=== PATIENT | male | born 1955 | race Caucasian/White ===

== ENCOUNTER → 2019-11-16 09:54 | Outpatient (POV) | payer MEDICARE, MEDICAID, SELFPAY ==
[2019-11-16 10:42] VITALS: BP 145/91; PULSE 103; RESP 18; TEMP 36.8; O2SAT 98; BMI 32.4
--- NOTE | 2019-11-16 11:10 | HMH.PMCON ---
Assessment and Plan (1) Degenerative joint disease (DJD) of lumbar spine Current visit: Yes Status: Acute Category: Medical Code(s): M47.816 - Spondylosis without myelopathy or radiculopathy, lumbar region (2) Lumbar radiculopathy Current visit: Yes Status: Acute Category: Medical Code(s): M54.16 - Radiculopathy, lumbar region (3) Degenerative joint disease of cervical spine Current visit: Yes Status: Chronic Category: Medical Code(s): M47.812 - Spondylosis without myelopathy or radiculopathy, cervical region (4) Cervical radiculopathy Current visit: Yes Status: Chronic Category: Medical Code(s): M54.12 - Radiculopathy, cervical region - Assessment and plan all Dx Assessment and Plan for all problems:: We will schedule the patient for a lumbar epidural steroid injection at L4-L5. Most of his pain is in his low back. He does have some neck pain as well as arm pain, however, he says much of his pain is in his low back and bilateral lower extremities. We will see him back in the clinic after his injection to reassess his symptoms. Patient does have recent imaging. He was referred to us for possible spinal cord stimulation or intrathecal therapy. We will begin the process of sending the patient for a psychological evaluation, however, the patient may get full relief with the injections. We will follow-up with him at his next visit to discuss a further plan of care after his injection. He has been instructed to contact the clinic if he has any concerns before his next appointment. The patient and I specifically discussed risk factors for COVID19. These risks include, but are not limited to age greater than 60, heart or lung disease, diabetes, immunosuppression, and travel. We also discussed NSAIDs may worsen COVID19 infection or symptoms. Patient should not use NSAIDs to treat COVID19 signs or symptoms. Patient was also informed that any type of corticosteroid of any form (oral or injection) will decrease the patient's immune system response and may increase the likelihood of COVID19 infection [address] symptoms[address] Mendez has reviewed this note and agrees with this plan of care. This note was dictated using voice recognition software and make contain errors or omissions. HPI - Data of Consult Patient: new to practice Consult date: 11/16/19 Requesting Physician: Adelaide Baeza APRN Primary Care Provider: Deidre Paniagua APRN - Consult Narrative Reason for consult: Neck pain, back pain, leg pain History of present illness: Mr. Casey is a 64 year old male presents today for consultation for low back pain as well as neck pain with radiation into his bilateral upper and lower extremities. Patient was being seen in a pain management center in [facility]. He was complaining of worsening pain and was referred to a neurosurgeon in [facility]. Patient says that he was receiving injections in his back, however, he says he was not getting any relief. The neurosurgeon did determine the patient to not be an appropriate candidate for surgical intervention and as a result did refer him to our clinic. Patient was referred for possible spinal cord stimulation or intrathecal therapy. The patient says that his sister is a patient within the clinic [facility]. He says that he has heard great things about Dr. Mendez and would like to proceed with treatment in our clinic. Patient rates his pain a 7 out of 10. He says that his pain is worse with standing and walking. He has had the pain since 1986 from a work injury. Patient says the pain has just progressively worsened over the years. He says that none of the injections have given him long-term relief. He does get approximately 60 to 70% relief with the injections, however, only temporary. Patient does say he is scheduled to undergo an echocardiogram/stress test on November 24. He would like to postpone any type of treatment before his stress test. Patient
== END ==
PROVIDERS: PCP Nurse Practitioner Family; Visit Provider Clinical Nurse Specialist Family Health
DX: M47.896 Other spondylosis, lumbar region (principal); M54.16 Radiculopathy, lumbar region; M47.892 Other spondylosis, cervical region; M54.12 Radiculopathy, cervical region
CPT/HCPCS: 99202

== ENCOUNTER 2019-12-04 12:54 | Day surgery (SDC) | payer MEDICARE, MEDICAID, SELFPAY ==
[2019-12-04 13:15] VITALS: BP 115/77; PULSE 64; RESP 18; TEMP 36.6; O2SAT 97; BMI 32.4
[2019-12-04 14:01] VITALS: BP 102/79; PULSE 69; RESP 18; O2SAT 98
[2019-12-04 14:02] VITALS: BP 132/88; PULSE 85; RESP 18; O2SAT 98
--- NOTE | 2019-12-04 14:06 | HMH.PMPROC ---
- Procedure Date: 12/04/19 Time: 14:06 Anesthesiologist:: Thierry Mendez MD Complications:: None Pre-procedure Diagnosis:: Degenerative disc disease of lumbar spine with lumbar radiculopathy symptoms and postlaminectomy syndrome of lumbar spine Post-procedure Diagnosis:: Same Indications for Procedure:: The patient is a pleasant 64-year-old white male who we are treating for low back pain with lumbar radiculopathy symptoms and postlaminectomy syndrome lumbar spine. He has had previous surgery on his cervical spine and lumbar spine. He does have some increasing pain in his low back. He does have some radicular symptoms. We will do lumbar epidural steroid injection today to see if this will help with his pain symptoms. Procedure Details:: Lumbar epidural steroid injection under fluoroscopy Informed consent was obtained and the risk and benefits of the procedure was explained to the patient. The patient was taken to the procedure room. The patient was placed prone on the procedure table. The patient was prepped and draped in sterile fashion. C-arm fluoroscopy was used to view the lumbar spine. Skin and subcutaneous tissues were anesthetized using lidocaine. I placed an 18-gauge epidural needle and advanced into the L4-L5 interspace using fluoroscopic guidance and [id number] to air. After confirmation of needle placement in the epidural space with dye I injected 2 mL of lidocaine 1.5% with Depo-Medrol 80 mg. Patient tolerated the procedure well with no complications. Plan and Disposition:: We will follow-up with him in 2 weeks. Will reevaluate his symptoms at that time. If he does not benefit from this lumbar pleural steroid injection he may benefit from facet joint injections to L4-5 and L5-S1 bilaterally.
[2019-12-04 14:20] VITALS: BP 119/69; PULSE 58; RESP 18; O2SAT 97
== END 2019-12-04 14:20 | disposition home or self-care (01) ==
LOC: SC.PAINP 12:59
PROVIDERS: PCP Nurse Practitioner Family; Visit Provider Anesthesiology
DX: M51.16 Intervertebral disc disorders with radiculopathy, lumbar region (principal); M96.1 Postlaminectomy syndrome, not elsewhere classified; E11.9 Type 2 diabetes mellitus without complications; I10 Essential (primary) hypertension; Z72.0 Tobacco use; I25.2 Old myocardial infarction; J44.9 Chronic obstructive pulmonary disease, unspecified; Z87.39 Personal history of other diseases of the musculoskeletal system and connective tissue; Z79.51 Long term (current) use of inhaled steroids; Z79.899 Other long term (current) drug therapy
CPT/HCPCS: 62323; J1040; Q9966

== ENCOUNTER → 2019-12-24 09:59 | Outpatient (POV) | payer MEDICARE, MEDICAID, SELFPAY ==
[2019-12-24 10:06] VITALS: BP 132/77; PULSE 74; RESP 18; TEMP 36.8; O2SAT 98; BMI 31.9
--- NOTE | 2019-12-24 12:49 | HMH.PAINSOAP ---
[facility] Pain Management SOAP Note Subjective:: Patient is a pleasant 64-year-old white male who presents today for up after a lumbar epidural steroid injection at L4-L5. He is being treated for low back pain with lumbar radiculopathy symptoms and postlaminectomy syndrome lumbar spine. Patient says that he only got a day of relief up to 40%. He says that his pain immediately returned. Patient reports his pain to be in the low back and worse with bending forward and at the waist. He rates his pain 8 out of 10 today. Does have facet arthritis noted on his imaging. Review of Systems General: No recent weight changes, no fever, no sleep disturbances Respiratory: No cough, no shortness of air, no recurring pulmonary infections Cardiovascular/peripheral vascular: No chest pain, no palpitations, no edema, no shortness of breath Gastrointestinal: No new onset incontinence, normal bowel movements reported Genitourinary: No new onset incontinence Musculoskeletal: Low back pain Psychiatric: Normal mood/affect Neurological: [Denies weakness in extremities], [denies balance issues] Objective:: Physical exam General: Alert and oriented x3, no acute distress, pleasant and cooperative, [on room air] Lungs: Respirations even and unlabored, symmetrical chest expansion Eyes: PERRL Musculoskeletal: Flexion and extension of bar spine somewhat guarded secondary to pain, deep tendon reflexes normal, strength in upper and lower extremities [5/5], [abnormal gait noted], positive Kemps test Neurological: Speech clear, global sales director equal, no gross sensory deficit Assessment:: Degenerative disc disease lumbar spine with lumbar radiculopathy symptoms, facet arthropathy Plan:: The patient for bilateral facet injections/medial branch blocks at L4-L5 L5-S1. He is not on any anticoagulation therapy. We will plan to see him back after his injection to reassess his symptoms. He did not get relief with the epidural steroid injection. He did discuss possible facet/medial branch block injections with Dr. KYLAH Willis at his last visit. He has been instructed to contact the clinic if he has any concerns for his next appointment. The patient and I specifically discussed risk factors for COVID19. These risks include, but are not limited to age greater than 60, heart or lung disease, diabetes, immunosuppression, and travel. We also discussed NSAIDs may worsen COVID19 infection or symptoms. Patient should not use NSAIDs to treat COVID19 signs or symptoms. Patient was also informed that any type of corticosteroid of any form (oral or injection) will decrease the patient's immune system response and may increase the likelihood of COVID19 infection [address] symptoms[address] Mendez has reviewed this note and agrees with this plan of care. This note was dictated using voice recognition software and make contain errors or omissions. [facility] History I have reviewed the patient's past medical history: Yes Medical History: Reports:: Diabetes Mellitus Type 2, Myocardial Infarction Denies:: Cancer, MRSA, Seizures *Have you ever received a pneumonia vaccine?: No *Have you received a flu vaccine this season?: No Other Medical History: Reports: Arthritis, Thyroid Disease Other Surgeries: Yes: Cardiac Catheterization Amputation: No - *Social History Smoking Status: Current every day smoker Tobacco Type: cigarettes # Packs/Day (cigarettes): 2 Alcohol Intake: former *Occupational Status:: other Housing: house Household Members: other *Travel in the last 8 weeks: None Family Hx:: Unable to obtain
== END ==
PROVIDERS: PCP Nurse Practitioner Family; Visit Provider Clinical Nurse Specialist Family Health
DX: M51.16 Intervertebral disc disorders with radiculopathy, lumbar region (principal); M12.88 Other specific arthropathies, not elsewhere classified, other specified site
CPT/HCPCS: 99212

== ENCOUNTER → 2020-01-15 12:58 | Day surgery (SDC) | payer MEDICARE, MEDICAID, SELFPAY ==
[2020-01-15 13:42] VITALS: BP 110/66; PULSE 82; RESP 18; TEMP 36.7; O2SAT 96; BMI 31.9
[2020-01-15 14:06] VITALS: BP 137/79; PULSE 85; RESP 18; O2SAT 98
[2020-01-15 14:07] VITALS: BP 139/78; PULSE 84; RESP 18; O2SAT 99
--- NOTE | 2020-01-15 14:13 | HMH.PMPROC ---
- Procedure Date: 01/15/20 Time: 14:13 Anesthesiologist:: Thierry Mendez MD Complications:: None Pre-procedure Diagnosis:: Degenerative disc disease of lumbar spine with lumbar spondylosis and facet arthropathy of lumbar spine Post-procedure Diagnosis:: Same Indications for Procedure:: This patient is a pleasant 64-year-old white male who we are treating for low back pain with lumbar spondylosis and facet arthropathy of lumbar spine. He has had previous surgery with fusion of L4-L5. He has had a lumbar pleural steroid injection. He did not get much relief from this. He presents for medial branch blocks of L5 and sacral ala today bilaterally. Procedure Details:: Lumbar medial branch block Informed consent was obtained and the risks and benefits of the procedure was explained to the patient. The back was prepped using ChloraPrep. The skin and subcutaneous tissues were anesthetized using lidocaine. I placed 22-gauge spinal needles into the facet joint/medial branches of L4-L5 and L5-S1 bilaterally. Needle placement was confirmed with dye. After this we injected 3 mL bupivacaine 0.25% and Depo-Medrol 20 mg into each facet joint/medial branch of L4-L5 and L5-S1 bilaterally. We used a total of 80 mg Depo-Medrol for both levels bilaterally. The patient tolerated the procedure well with no complications. Plan and Disposition:: We will follow-up with him in 2 weeks. Will reevaluate symptoms at that time. If he does not get much relief he may be a candidate for intrathecal therapy given his previous back surgery.
== END ==
PROVIDERS: PCP Nurse Practitioner Family; Visit Provider Anesthesiology
DX: M51.36 Other intervertebral disc degeneration, lumbar region (principal); M47.816 Spondylosis without myelopathy or radiculopathy, lumbar region; M12.88 Other specific arthropathies, not elsewhere classified, other specified site; E11.9 Type 2 diabetes mellitus without complications; I10 Essential (primary) hypertension; N40.0 Benign prostatic hyperplasia without lower urinary tract symptoms; Z72.0 Tobacco use; E78.5 Hyperlipidemia, unspecified; J44.9 Chronic obstructive pulmonary disease, unspecified; E07.9 Disorder of thyroid, unspecified; Z82.49 Family history of ischemic heart disease and other diseases of the circulatory system
CPT/HCPCS: 64493; 64494; J1030; Q9966

== ENCOUNTER → 2020-02-04 09:22 | Outpatient (POV) | payer MEDICARE, MEDICAID, SELFPAY ==
[2020-02-04 10:02] VITALS: BP 132/74; PULSE 79; RESP 18; O2SAT 98; BMI 30.7
--- NOTE | 2020-02-04 10:14 | HMH.PAINSOAP ---
[facility] Pain Management SOAP Note Subjective:: Patient is a 65-year-old white male who presents today for follow-up after medial branch block/facet joint injections. Patient did not get any relief. He rates his pain an 8 out of 10 today. He says that he is continuing to have significant pain to his low back. He has had previous surgery with fusion of L4-L5. He is also had lumbar epidural steroid injections with no relief. He has tried physical therapy for greater than 6 weeks. He has also tried a continued home stretching program. Patient does continue to use ice and heat therapies and has tried anti-inflammatories in the past with no relief. At this point he has exhausted all conservative measures He continues to has significant low back pain and leg pain. Review of Systems General: No recent weight changes, no fever, no sleep disturbances Respiratory: No cough, no shortness of air, no recurring pulmonary infections Cardiovascular/peripheral vascular: No chest pain, no palpitations, no edema, no shortness of breath Gastrointestinal: No new onset incontinence, normal bowel movements reported Genitourinary: No new onset incontinence Musculoskeletal: Low back pain, bilateral lower extremity pain Psychiatric: Normal mood/affect Neurological: [Denies weakness in extremities], [denies balance issues] Objective:: Physical exam General: Alert and oriented x3, no acute distress, pleasant and cooperative, [on room air] Lungs: Respirations even and unlabored, symmetrical chest expansion Eyes: PERRL Musculoskeletal: Flexion and extension of lumbar spine somewhat guarded secondary to pain, deep tendon reflexes normal, strength in upper and lower extremities [5/5], [abnormal gait noted] Neurological: Speech clear, desktop support engineer equal, no gross sensory deficit Assessment:: Degenerative disc disease lumbar spine with lumbar radiculopathy symptoms, lumbar spondylosis and facet arthropathy lumbar spine Plan:: Patient is trying failed all conservative measures. We will schedule him for a pain pump trial. The patient is not on any anticoagulation therapy. Patient has not been able to tolerate morphine in the past. He says that he has severe nausea and vomiting anytime he does take morphine. We will see him back in the clinic after his injection to reassess his symptoms. He has been instructed to contact clinic if he has any concerns for his next appointment. The patient and I specifically discussed risk factors for COVID19. These risks include, but are not limited to age greater than 60, heart or lung disease, diabetes, immunosuppression, and travel. We also discussed NSAIDs may worsen COVID19 infection or symptoms. Patient should not use NSAIDs to treat COVID19 signs or symptoms. Patient was also informed that any type of corticosteroid of any form (oral or injection) will decrease the patient's immune system response and may increase the likelihood of COVID19 [address] symptoms[address] Mendez has reviewed this note and agrees with this plan of care. This note was dictated using voice recognition software and make contain errors or omissions. [facility] History I have reviewed the patient's past medical history: Yes Medical History: Reports:: Diabetes Mellitus Type 2, Hyperlipidemia, Hypertension, Myocardial Infarction Denies:: Cancer, Diabetes Mellitus Type 1, MRSA, Seizures *Have you ever received a pneumonia vaccine?: Yes *Have you received a flu vaccine this season?: Yes Other Medical History: Reports: Arthritis, Thyroid Disease Other Surgeries: Yes: Cardiac Catheterization Amputation: No Fractures: No - *Social History Smoking Status: Current every day smoker Tobacco Type: cigarettes # Packs/Day (cigarettes): 1 Alcohol Intake: never *Occupational Status:: other Housing: house Household Members: other *Travel in the last 8 weeks: None Family Hx:: Unable to obtain
== END ==
PROVIDERS: PCP Nurse Practitioner Family; Visit Provider Clinical Nurse Specialist Family Health
DX: M51.16 Intervertebral disc disorders with radiculopathy, lumbar region (principal); M47.896 Other spondylosis, lumbar region; M12.88 Other specific arthropathies, not elsewhere classified, other specified site
CPT/HCPCS: 99212

== ENCOUNTER 2020-02-26 08:22 | Day surgery (SDC) | payer MEDICARE, MEDICAID, SELFPAY ==
[2020-02-26] VITALS (10 sets, daily range): BP systolic 106–139; BP diastolic 70–88; PULSE 91–105; RESP 18–20; TEMP 36.4; O2SAT 95–99; BMI 30.7
--- NOTE | 2020-02-26 09:26 | HMH.PMPROC ---
- Procedure Date: 02/26/20 Time: 09:26 Anesthesiologist:: Thierry Mendez MD Complications:: None Pre-procedure Diagnosis:: Degenerative disc disease of lumbar spine with lumbar radiculopathy symptoms and postlaminectomy syndrome lumbar spine with previous fusion of L4-L5 Post-procedure Diagnosis:: Same Indications for Procedure:: This patient is a pleasant 65-year-old white male who we are treating for low back pain with lumbar radiculopathy symptoms and postlaminectomy syndrome lumbar spine. Patient has had a previous fusion of L4-L5. Patient has failed all previous conservative therapy including medial branch blocks, and other injections, oral medications and physical therapy. He is also failed previous surgery. He has had a successful psychological evaluation. He presents for intrathecal pump trial today. Patient does get deathly ill with morphine. If this is successful we will plan on using intrathecal Dilaudid. Today we will do an intrathecal pump trial with single shot of intrathecal fentanyl. Procedure Details:: Pain pump trial Informed consent was obtained and the risk and benefits of the procedure was explained to the patient. The patient was taken to the procedure room and placed prone on the procedure table. Patient was prepped and draped in sterile fashion. C-arm fluoroscopy was used to view the lumbar spine. The skin and subcutaneous tissues were anesthetized using lidocaine. I placed a 18-gauge spinal needle into the L4-5 interspace and advanced until clear CSF was obtained. After this intrathecal catheter was inserted and advanced very easily to the L1 vertebral body. The needle was withdrawn. We were able to freely withdraw clear CSF through the catheter. We then injected intrathecal fentanyl single shot bolus of 25 mcg followed by saline and followed by the previous CSF that was withdrawn. The needle and catheter were then removed and a Band-Aid was placed. Patient tolerated the procedure well with no complications. We reevaluated the patient after 30 minutes to 1 hour. He was also reassessed by physical therapy. Patient had 90 to 100% relief in his pain symptoms. He was also much more functional. This was a successful intrathecal pump trial. We will plan on permanent placement of intrathecal pain pump with catheter tip at the L1 vertebral body. We will plan on using intrathecal Dilaudid 1 mg/mL as the patient does have a severe allergy to pain. We will plan on starting at 0.1 mg/day of intrathecal Dilaudid. Plan and Disposition:: We will have this patient see Dr. Darling for permanent placement of intrathecal pain pump. We will plan on permanent placement of intrathecal pain pump with catheter tip at the L1 vertebral body. We will also plan on using intrathecal Dilaudid 1 mg/mL to start at 0.1 mg/day.
--- NOTE | 2020-02-26 11:04 | PC.NURSE ---
0930-pt returned to bay, ambulatory, accompanied by nursing staff. assisted to reclining chiar. VSS. rates pain 4 on scale of 1-10. pt provided with water per request. no other needs or concerns at this time. 0945-pt resting in chair. tolerating PO intake. VSS. no c/o pain 0947-pt sitting up in chair. eating breakfast. c/o itching. medicated per prn order. no other needs or concerns at this time. 1000-pt resting in chair. vss, no c/o pain. assisted to bathroom by nursing staff. gait steady. 1015-pt resting in chair. vss, no c/o pain. no needs or concerns at this time 1045-pt resting in chair. vss, no c/o pain. verbalized wanting to go home MD notified 1050-MD at bedside.
== END 2020-02-26 11:00 | disposition home or self-care (01) ==
LOC: SC.PAINP 08:25
PROVIDERS: PCP Nurse Practitioner Family; Visit Provider Anesthesiology
DX: M51.16 Intervertebral disc disorders with radiculopathy, lumbar region (principal); M96.1 Postlaminectomy syndrome, not elsewhere classified; M43.26 Fusion of spine, lumbar region; I10 Essential (primary) hypertension; N40.0 Benign prostatic hyperplasia without lower urinary tract symptoms; F32.9 Major depressive disorder, single episode, unspecified; G25.81 Restless legs syndrome; E11.9 Type 2 diabetes mellitus without complications; Z79.84 Long term (current) use of oral hypoglycemic drugs; Z79.899 Other long term (current) drug therapy
CPT/HCPCS: 62323; 96365

== ENCOUNTER → 2020-04-05 11:51 | Outpatient (CLI) | payer MEDICARE, MEDICAID, SELFPAY ==
[2020-04-05 12:33] LABS: Basophils # 0.1 K/mm3 (0-0.2); Basophils % 0.6 % (0.1-2.0); Eosinophils # 0.2 K/mm3 (0.0-0.4); Eosinophils % 2.2 % (0.1-12.0); Hematocrit 45.7 % (42.0-52.0); Hemoglobin 15.7 g/dL (14.1-18.0); Lymphocytes # 2.9 K/mm3 (0.7-4.5); Lymphocytes % 30.4 % (10-50); Mean Corpuscular HGB Conc 34.4 g/dL (31.8-35.4); Mean Corpuscular Hemoglobin 32.1 pg (27.0-31.2); Mean Corpuscular Volume 93.4 fl (80-94); Mean Platelet Volume 8.1 fl (7.4-10.4); Monocytes # 0.5 K/mm3 (0.1-1.0); Monocytes % 4.6 % (1.7-9.3); Neutrophils % 62.2 % (37.0-80.0); Platelet Count 252 K/mm3 (142-424); Red Cell Distribution Width 14.6 % (11.5-17.5); White Blood Count 9.6 K/mm3 (4.8-10.8)
[2020-04-05 12:38] LABS: Benzodiazepines Screen,Urine Negative ng/ml (<200)
[2020-04-05 12:39] LABS: Amphetamine/Metha Screen,Urine Negative ng/ml (<1000)
[2020-04-05 12:40] LABS: Barbiturates Screen,Urine Negative ng/ml (<200); Cannabinoid Screen,Urine Negative ng/ml (<50)
[2020-04-05 12:41] LABS: Cocaine Screen,Urine Negative ng/ml (<300); Methadone Screen,Urine Negative ng/ml (<300)
[2020-04-05 12:42] LABS: Opiate Screen,Urine Negative ng/ml (<300)
[2020-04-05 12:51] LABS: Phencyclidine Screen,Urine Negative ng/ml (<25)
[2020-04-05 12:55] LABS: Chloride 102 mmol/L (98-107); Potassium 4.3 mmoL/L (3.5-5.1); Sodium 138 mmol/L (136-145)
[2020-04-05 12:58] LABS: Anion Gap 14.3 mEq/L (5-15); Blood Urea Nitrogen 14 mg/dl (9-20); Calcium 10.2 mg/dl (8.4-10.2); Carbon Dioxide 26 mmol/L (22.0-30.0); Estimated Glomerular Filt Rate 75 ml/min (>60); GFR (African American) 90 ML/MIN (>60); Glucose 145 mg/dl (74-100)
[2020-04-05 13:47] LABS: Coronavirus 19 IgG Antibody Negative (Negative)
[2020-04-05 13:48] LABS: Coronavirus 19 IgM Antibody Negative (Negative)
== END ==
PROVIDERS: Visit Provider Anesthesiology
DX: Z01.818 Encounter for other preprocedural examination (principal); Z03.818 Encounter for observation for suspected exposure to other biological agents ruled out; M51.36 Other intervertebral disc degeneration, lumbar region
CPT/HCPCS: 36415; 80048; 80305; 85025; 86328

== ENCOUNTER 2020-04-06 06:19 | Day surgery (SDC) | payer MEDICARE, MEDICAID, SELFPAY ==
[2020-04-04 14:26] VITALS: BMI 32.4
[2020-04-06 07:08] VITALS: BP 130/83; PULSE 81; RESP 18; TEMP 36.2; O2SAT 97
--- NOTE | 2020-04-06 07:23 | SUR.PREOP ---
CYRIL DICK DIRECTOR ENGINEERING NOTIFIED OF FSBS 167, NO NEW ORDERS.
[2020-04-06 07:27] LABS: POC Glucose,Bedside 167 (70-110)
--- NOTE | 2020-04-06 07:31 | P.PN_ITS ---
[facility] Anesthesia Checklist - Structural Data Admitted From: Home Planned Operative Procedure/s: pain pump Consent for Planned Operative Procedure(s) Verified: Yes - Additional verifications Anesthesia Reactions: No Hx Blood Transfusions: No - Airway Assessment C-Spine Mobility Assessed: Yes TMJ Mobility Assessed: Yes Dentition: Edentulous - Neurological Assessment Level of Consciousness: Awake, Alert, Appropriate - Anesthesia Plan Anesthesia Risk discussed: Yes Anesthesia Plan: Verified ASA Class: III Anesthesia Type: MAC [facility] History I have reviewed the patient's past medical history: Yes Medical History: Reports:: Diabetes Mellitus Type 2, Hyperlipidemia, Hypertension, Myocardial Infarction Denies:: Cancer, Diabetes Mellitus Type 1, Internal Pacemaker, MRSA, Seizures *Have you ever received a pneumonia vaccine?: Yes *Have you received a flu vaccine this season?: Yes Other Medical History: Reports: Arthritis, Thyroid Disease Anesthesia experience/problems:: none Other Surgeries: Yes: Cardiac Catheterization, Colonoscopy, EGD, Hernia Repair, Other (x2 back surgeries). No: Pacemaker Amputation: Yes Fractures: No - *Social History Last grade of school completed: 9th or 10th Smoking Status: Current every day smoker Tobacco Type: cigarettes # Packs/Day (cigarettes): 1 Alcohol Intake: former Substance Use Type: denies use *Occupational Status:: unemployed, disabled Housing: house Household Members: none *Travel in the last 8 weeks: None Family Hx:: Unable to obtain
--- NOTE | 2020-04-06 07:51 | HMH.PMCON ---
Assessment and Plan - Assessment and plan all Dx Assessment and Plan for all problems:: Impression-degenerative disc disease of the lumbar spine with radiculopathy Plan-placement of intrathecal pain pump system today HPI - Data of Consult Patient: new to practice Consult date: 04/06/20 Requesting Physician: Thierry Mendez MD Primary Care Provider: Deidre Paniagua APRN - Consult Narrative History of present illness: Mr. Casey is a 65 year old male with chronic back pain. He has had back surgery x2. Multiple attempts at pain relief unsuccessful. Patient had a pain pump trial with success and comes in today for placement of that system. CC: Thierry Mendez MD Back pain [facility] History I have reviewed the patient's past medical history: Yes Medical History: Reports:: Diabetes Mellitus Type 2, Hyperlipidemia, Hypertension, Myocardial Infarction Denies:: Cancer, Diabetes Mellitus Type 1, Internal Pacemaker, MRSA, Seizures *Have you ever received a pneumonia vaccine?: Yes *Have you received a flu vaccine this season?: Yes Other Medical History: Reports: Arthritis, Thyroid Disease Comment:: Illnesses-cigarette usage, hypertension, hyperlipidemia, COPD, BPH, anxiety and depression, chronic back pain Anesthesia experience/problems:: none Other Surgeries: Yes: Cardiac Catheterization, Colonoscopy, EGD, Hernia Repair, Other (x2 back surgeries). No: Pacemaker Amputation: Yes Fractures: No Comment: Operations, back surgery x2, hernia repair - *Social History Last grade of school completed: 9th or 10th Smoking Status: Current every day smoker Tobacco Type: cigarettes # Packs/Day (cigarettes): 1 Alcohol Intake: former Substance Use Type: denies use *Occupational Status:: unemployed, disabled Housing: house Household Members: none *Travel in the last 8 weeks: None Family Hx:: Unable to obtain Review of Systems - Review of Systems Review of systems:: pertinent systems reviewed and negative unless documented below Meds Home Medications Medication Instructions Recorded Confirmed Type Amitriptyline HCl [Elavil 50mg 50 mg PO DAILYP PRN 11/16/19 04/06/20 History tablet] Finasteride 1 mg PO DAILY 11/16/19 04/06/20 History Metformin HCl [Fortamet] 500 mg PO DAILY 11/16/19 04/06/20 History Metoprolol Succinate [Metoprolol 25 mg PO DAILY 11/16/19 04/06/20 History Succinate 25mg Tablet*] allopurinoL [Allopurinol 300mg 300 mg PO DAILY 11/16/19 04/06/20 History tablet] Cyclobenzaprine HCl 10 mg PO TID 12/24/19 04/06/20 History [Cyclobenzaprine 10mg Tab] Loratadine 10 mg PO DAILY 12/24/19 04/06/20 History Naproxen 500 mg PO BID 12/24/19 04/06/20 History Pravastatin Sodium [Pravachol] 40 mg PO HS 12/24/19 04/06/20 History Ropinirole HCl [Ropinirole ER] 3 mg PO TID 12/24/19 04/06/20 History Sertraline HCl 25 mg PO DAILY 12/24/19 04/06/20 History Tamsulosin HCl 0.4 mg PO HS 12/24/19 04/06/20 History Verapamil HCl [Verapamil ER] 120 mg PO DAILY 12/24/19 04/06/20 History hydrOXYzine HCL [Hydroxyzine HCl] 50 mg PO HS 12/24/19 04/06/20 History Allergies Allergy/AdvReac Type Severity Reaction Status Date / Time No Known Allergies Allergy Verified 04/06/20 07:04 Objective Vital signs: Temp Pulse Resp BP Pulse Ox 97.1 F L 81 18 130/83 97 04/06/20 07:08 04/06/20 07:08 04/06/20 07:08 04/06/20 07:08 04/06/20 07:08 Comments: Pale white male in no distress - *Routine Respiratory Exam Comments: Decreased breath sounds - *Routine Cardiovascular Exam Present: RRR - *Routine Abdominal Exam Present: soft Comments: Diastases rectus
[2020-04-06 09:53] VITALS: TEMP 43; TEMP 6.1
--- NOTE | 2020-04-06 10:01 | P.OP_ITS ---
Date of procedure: 04/06/20 Pre-op Diagnosis:: Degenerative disc disease of the lumbar spine with radiculopathy Post-op Diagnosis:: Same Procedure performed:: Placement of pain pump generator Surgeon:: Sanju Darling MD LEAD BASED PAINT TECHNICIAN:: Ry Kellogg, Kali Mcnulty, Bradley Mcclain, Gabino Hanna, Other Anesthesia: MAC Estimated blood loss (mL): 5 Operative findings:: Not applicable Operative note:: Once adequate IV sedation was obtained via anesthesia the patient was placed prone on the operating table and his back and flank regions were prepped and draped in sterile fashion. Once adequate local anesthesia was 1% Xylocaine with epinephrine a paraspinal incision was made by Dr. Simons which an intrathecal catheter was passed into the intrathecal space to the area desired by Dr. Kay. Catheter then fixed the paraspinal fascia with fixation devices and 2-0 Prolene suture. Right flank incision was then made after local anesthesia obtained under which made a pocket for placement of the reservoir. Catheter was passed to the paraspinal incision of the pocket incision utilize a tunneling device. Both incisions irrigated with antibiotic solution. Catheter connected the generator placed in the pocket. CSF was aspirated from the generator noting patency of the system. Subcutaneous tissues closed with interrupted stitches of 2-0 Vicryl. Skin closed with stitches of 4-0 nylon. Wound VAC dressings and binder is applied to the wound. The patient taught procedure well taken recovery sedation. Upon recovery the patient will be discharged home follow-up in 1 week for removal of the wound VAC system in 2 weeks for removal of the sutures. Antibiotic x1 week per protocol. The patient taught procedure well. Condition: stable Disposition: PACU Complications:: None
--- NOTE | 2020-04-06 10:02 | P.OP_ITS ---
Date of procedure: 04/06/20 Pre-op Diagnosis:: Degenerative disc disease of lumbar spine with lumbar radiculopathy symptoms and postlaminectomy syndrome of lumbar spine with previous fusion at L4-L5 Post-op Diagnosis:: Same Procedure performed:: Intrathecal catheter placement with tunneling for permanent placement of intrathecal pain pump Surgeon:: Thierry Mendez MD AGRICULTURAL SALES REPRESENTATIVE:: Ry Kellogg Anesthesia: MAC Estimated blood loss (mL): 5 Clinical Note:: This patient is a pleasant 65-year-old white male who we are treating for low back pain with lumbar radiculopathy symptoms and postlaminectomy syndrome lumbar spine. He is failed all previous conservative therapy including medial branch blocks, other injections, oral medications and physical therapy. He is also failed previous surgery. He has had a successful psychological evaluation and a successful intrathecal pump trial. Patient gets deathly ill with morphine. He presents for permanent placement of intrathecal pain pump with Dilaudid today. Operative findings:: None Operative note:: Informed consent was obtained and the risk and benefits of the procedure was explained to the patient. Patient was taken to the operating room and placed prone on the procedure table. He was prepped and draped in sterile fashion. C- arm fluoroscopy was used to view the lumbar spine. The skin and subcutaneous tissues were anesthetized using lidocaine. I made an incision adjacent to the L4-L5 interspace. I dissected down to the lumbar paraspinous fascia. A 14- gauge spinal needle was inserted and advanced into the L4-5 interspace until clear CSF was obtained. After this intrathecal catheter was inserted and advanced very easily to the L1 vertebral body. The stylette of the catheter and the needle were withdrawn. The catheter was secured to the fascia with 2 anchoring devices and 2-0 Prolene. I prepared the pump with 20 mL of intrathecal Dilaudid 1 mg/mL while Dr. Darling prepared the pump pocket. I tunneled the catheter from the back to the pump pocket and attached the catheter to the pump. The pump was placed in the pump pocket. Both incisions were irrigated with bacitracin solution. We were able to freely withdraw clear CSF through the side-port. Both incisions were then closed with 2-0 Vicryl followed by 4-0 nylon. A wound VAC was placed over both incisions. The patient was placed in an abdominal binder and taken recovery in stable condition. The pump was interrogated and started at 0.1 mg/day of intrathecal Dilaudid. Patient tolerated the procedure well with no complications. Patient was discharged home neurologically intact with good relief of pain symptoms. Plan and disposition: We will follow-up with this patient in 1 week for reprogramming and wound check. We will follow-up in 2 weeks for suture removal. If the patient has any problems or questions he is to call us back in the pain clinic. Condition: stable Disposition: PACU Complications:: none
[2020-04-06 10:10] VITALS: BP 91/50; PULSE 59; RESP 15; TEMP 36.4; O2SAT 92
[2020-04-06 10:25] VITALS: BP 107/60; PULSE 66; RESP 15; O2SAT 94
[2020-04-06 10:40] VITALS: BP 108/64; PULSE 65; RESP 16; O2SAT 95
[2020-04-06 11:10] VITALS: BP 112/74; PULSE 57; RESP 16; O2SAT 96
== END 2020-04-06 11:10 | disposition home or self-care (01) ==
LOC: OR 06:22
PROVIDERS: PCP Nurse Practitioner Family; Visit Provider Anesthesiology
DX: M51.16 Intervertebral disc disorders with radiculopathy, lumbar region (principal); M96.1 Postlaminectomy syndrome, not elsewhere classified; Z88.5 Allergy status to narcotic agent; E11.9 Type 2 diabetes mellitus without complications; E78.5 Hyperlipidemia, unspecified; I10 Essential (primary) hypertension; I25.2 Old myocardial infarction; M19.90 Unspecified osteoarthritis, unspecified site; E07.9 Disorder of thyroid, unspecified; J44.9 Chronic obstructive pulmonary disease, unspecified; F41.9 Anxiety disorder, unspecified; F32.9 Major depressive disorder, single episode, unspecified; Z79.899 Other long term (current) drug therapy; Z72.0 Tobacco use
CPT/HCPCS: 62350; 62362; 82962; 96374; C1755; C1772; J3370

== ENCOUNTER → 2020-04-14 09:29 | Outpatient (POV) | payer MEDICARE, MEDICAID, SELFPAY ==
--- NOTE | 2020-04-14 09:46 | HMH.PMPROC ---
- Procedure Date: 04/14/20 Time: 09:47 Anesthesiologist:: Adelaide Baeza APRN Complications:: None Pre-procedure Diagnosis:: Degenerative disc disease lumbar spine with lumbar radiculopathy symptoms, postlaminectomy syndrome lumbar spine with previous fusion at L4-L5 Post-procedure Diagnosis:: Same Indications for Procedure:: Patient is a 65-year-old white male who presents today for follow-up after placement of an intrathecal pain pump. Patient rates his pain an 8 out of 10 today. He says he is having incisional pain as well as worsening low back pain since the surgery. Patient says that the wound VAC also gave him significant pain. He is concerned that the pump is not going to give him any relief. Patient I did discuss that it will take time for him to heal. He is most likely having some incisional pain. Is currently on morphine at 0.1 mg/day. We will also increase his dose today. I did discuss with him we will see him back in 2 weeks also to remove his sutures. Physical exam General: Alert and oriented x3, no acute distress, pleasant and cooperative, [on room air] Lungs: Respirations even and unlabored, symmetrical chest expansion Eyes: PERRL Musculoskeletal: Flexion and extension of lumbar spine somewhat guarded secondary to pain, deep tendon reflexes normal, strength in upper and lower extremities [5/5], [abnormal gait noted] Neurological: Speech clear, internal consultant equal, no gross sensory deficit Skin: Patient well approximated, no redness, no drainage, no edema noted to site, sutures intact Prevena wound VAC removed Procedure Details:: Informed consent was obtained and the risk and benefits of the procedure were explained to the patient. Patient was taken to the procedure room where noninvasive monitoring was placed including noninvasive blood pressure cuff and pulse oximeter. Patient's pump was interrogated and was reprogrammed to morphine at 0.12 mg/day. The patient tolerated the procedure well with no complications. Plan and Disposition:: Wound VAC was removed today. We will plan to see him back in 2 weeks to remove his sutures. I did give him an increase of morphine at 0.12 mg/day. He may need an increase again at his next visit. He is having significant pain, however, patient is opiate na?ve. He has not taken opiates in the past. We will see him back in the clinic in 2 weeks to reassess his symptoms as well. The patient and I specifically discussed risk factors for COVID19. These risks include, but are not limited to age greater than 60, heart or lung disease, diabetes, immunosuppression, and travel. We also discussed NSAIDs may worsen COVID19 infection or symptoms. Patient should not use NSAIDs to treat COVID19 signs or symptoms. Patient was also informed that any type of corticosteroid of any form (oral or injection) will decrease the patient's immune system response and may increase the likelihood of COVID19 infection [address] symptoms[address]. Mendez has reviewed this note and agrees with this plan of care. This note was dictated using voice recognition software and make contain errors or omissions.
[2020-04-14 09:59] VITALS: BP 125/84; PULSE 74; RESP 18; TEMP 36.8; O2SAT 98; BMI 32.4
== END ==
PROVIDERS: Visit Provider Clinical Nurse Specialist Family Health
DX: M51.16 Intervertebral disc disorders with radiculopathy, lumbar region (principal); M96.1 Postlaminectomy syndrome, not elsewhere classified; M43.26 Fusion of spine, lumbar region
CPT/HCPCS: 99212

== ENCOUNTER → 2020-04-28 14:55 | Outpatient (POV) | payer MEDICARE, MEDICAID, SELFPAY ==
--- NOTE | 2020-04-28 15:27 | HMH.PMPROC ---
- Procedure Date: 04/28/20 Time: 15:28 Anesthesiologist:: Dee Perkins APRN Complications:: None Pre-procedure Diagnosis:: Degenerative disc disease lumbar spine lumbar radiculopathy symptoms postlaminectomy syndrome lumbar spine Post-procedure Diagnosis:: Same Indications for Procedure:: Patient is a pleasant 65-year-old white male who presents today for follow-up and intrathecal pain pump adjustment. He is currently going at 0.12 mg of morphine a day. He states the pain is a 6 out of 10. The sutures have been removed. No sign symptoms of infection. We will increase him slightly today. He denies any side effects to his infusion. [facility] #[id number] reviewed and appropriate. Procedure Details:: Informed consent was obtained and the risk and benefits of the procedure were explained to the patient. The patient was taken to the procedure room where noninvasive monitoring was placed including noninvasive blood pressure cuff and pulse oximeter. Patient's pump was interrogated and reprogrammed. The infusion rate was increased to 0.15 mg of morphine a day. The patient tolerated the procedure well. Plan and Disposition:: We will see the patient back at his next intrathecal pain pump refill and reprogram. He has been instructed to call our office if he needs any adjustments prior to this. Dr. Mendez has reviewed this note and agrees with this plan of care. This note was dictated using voice recognition software and may contain errors or omissions
[2020-04-28 15:50] VITALS: BP 132/88; PULSE 74; RESP 18; TEMP 36.8; O2SAT 98; BMI 33.9
== END ==
PROVIDERS: Visit Provider Clinical Nurse Specialist Family Health
DX: M51.16 Intervertebral disc disorders with radiculopathy, lumbar region (principal); M96.1 Postlaminectomy syndrome, not elsewhere classified
CPT/HCPCS: 62368

== ENCOUNTER 2020-07-04 13:28 | Day surgery (SDC) | payer MEDICARE, MEDICAID, SELFPAY ==
[2020-07-04 13:35] VITALS: BP 121/68; PULSE 93; RESP 18; TEMP 36.8; O2SAT 98; BMI 30.7
[2020-07-04 13:56] VITALS: BP 115/74; PULSE 84; RESP 18; O2SAT 98
[2020-07-04 14:03] VITALS: BP 118/74; PULSE 83; RESP 18; O2SAT 98
--- NOTE | 2020-07-04 14:05 | HMH.PMPROC ---
- Procedure Date: 07/04/20 Time: 14:05 Anesthesiologist:: Dee Perkins APRN Complications:: None Pre-procedure Diagnosis:: Degenerative disc disease lumbar spine lumbar radiculopathy postlaminectomy syndrome, back pain Post-procedure Diagnosis:: Same Indications for Procedure:: Patient is a pleasant 65-year-old white male who presents today for follow-up and intrathecal pain pump refill and reprogram. He is currently going at 0.15 mg of morphine a day. He states that the pump is very beneficial for him he rates his pain a 7 out of 10 however he states he is much more functional. Patient would like a slight increase today. [facility] #[id number] reviewed and appropriate. Drug screens have been appropriate patient states that he is not having any side effects to the medication. Physical Exam General: Alert and oriented x3, no acute distress, pleasant and cooperative, [on room air] Lungs: Resps E/U, Symmetrical chest expansion, [CTA bilateral] Eyes: PERRL Musculoskeletal: Flexion and extension of lumbar spine somewhat guarded secondary to pain, deep tendon reflexes normal, strength in upper and lower extremities [5/5], [abnormal gait noted] Neurological: speech clear, electrician powerhouse equal, no gross sensory deficits Neurological: [denies new onset weakness in extremities], [denies new onset balance issues] Procedure Details:: Informed consent was obtained and the risk and benefits of the procedure were explained to the patient. The patient was taken to the procedure room where noninvasive monitoring was placed including noninvasive blood pressure cuff and pulse oximeter. Patient's pump was interrogated. The area over the pump was cleansed with chlorhexidine as a cleansing solution. In sterile fashion the pump was accessed with a 22-gauge needle. Approximately 7.5 mL's were removed of the pump solution and discarded appropriately. The pump was then refilled with 20 mL's of Dilaudid 1 mg/mL. The needle was withdrawn and a bandage was placed over the puncture site. The infusion rate was reprogrammed to 0.17 mg/day. The patient tolerated the procedure well. Plan and Disposition:: We will see the patient back at his next intrathecal pain pump refill and reprogram he has been instructed to call the office if he has any issues prior to his next appointment. Dr. Mendez has reviewed this note and agrees with this plan of care. This note was dictated using voice recognition software and may contain errors or omissions
[2020-07-04 14:16] VITALS: BP 125/70; PULSE 81; RESP 20; O2SAT 98
== END 2020-07-04 14:17 | disposition home or self-care (01) ==
LOC: SC.PAINP 13:29
PROVIDERS: PCP Nurse Practitioner Family; Visit Provider Clinical Nurse Specialist Family Health
DX: M51.16 Intervertebral disc disorders with radiculopathy, lumbar region (principal); Z45.1 Encounter for adjustment and management of infusion pump; E78.5 Hyperlipidemia, unspecified; I10 Essential (primary) hypertension; J44.9 Chronic obstructive pulmonary disease, unspecified; F41.9 Anxiety disorder, unspecified; F32.9 Major depressive disorder, single episode, unspecified; Z86.73 Personal history of transient ischemic attack (TIA), and cerebral infarction without residual deficits; Z79.899 Other long term (current) drug therapy; Z72.0 Tobacco use
CPT/HCPCS: 62370

== ENCOUNTER 2020-10-03 12:52 | Day surgery (SDC) | payer MEDICARE, MEDICAID, SELFPAY ==
[2020-10-03 13:31] VITALS: BP 116/70; PULSE 60; RESP 18; TEMP 36.6; O2SAT 97; BMI 31.4
[2020-10-03 13:49] VITALS: BP 116/68; PULSE 73; RESP 18; O2SAT 98
[2020-10-03 13:50] VITALS: BP 110/65; PULSE 70; RESP 18; O2SAT 97
--- NOTE | 2020-10-03 13:55 | HMH.PMPROC ---
- Procedure Date: 10/03/20 Time: 13:55 Anesthesiologist:: Adelaide Baeza APRN Complications:: None Pre-procedure Diagnosis:: Disc disease lumbar spine with lumbar radiculopathy symptoms, postlaminectomy syndrome lumbar spine Post-procedure Diagnosis:: Same Indications for Procedure:: Patient is a pleasant 65-year-old male who presents today for intrathecal pain pump refill and reprogram. He has been treated for degenerative disc disease lumbar spine with lumbar radiculopathy symptoms and postlaminectomy syndrome lumbar spine. Is currently managed with intrathecal therapy of Dilaudid at 0.17 mg/day. He denies any side effects to the medication. He would like a slight increase today. [facility] #[id number] has been reviewed and is appropriate. Drug screen is appropriate. We will increase him today. His pain a 6 out of 10 today. His pain is to his low back area. Physical exam General: Alert and oriented x3, no acute distress, pleasant and cooperative, [on room air] Lungs: Respirations even and unlabored, symmetrical chest expansion Eyes: PERRL Musculoskeletal: Flexion and extension of lumbar spine somewhat guarded secondary to pain, deep tendon reflexes normal, strength in upper and lower extremities [5/5], [abnormal gait noted] Neurological: Speech clear, radio aerial installer equal, no gross sensory deficit Procedure Details:: Informed consent was obtained and the risk and benefits of the procedure were explained to the patient. The patient was taken to the procedure room where noninvasive monitoring was placed including noninvasive blood pressure cuff and pulse oximeter. Patient's pump was interrogated. The area over the pump was cleansed with chlorhexidine as a cleansing solution. In sterile fashion the pump was accessed with a 22-gauge needle. Approximately 4 miles mls of the pump solution was removed and discarded appropriately. The pump was then refilled with 20 mL's of Dilaudid 1 mg/mL. The needle was withdrawn and a bandage was placed over the puncture site. The infusion rate was reprogrammed at Dilaudid at 0.20 mg/day. The patient tolerated well with no complication. Plan and Disposition:: We will see the patient back in the clinic at the next intrathecal refill. Patient has been instructed to contact the clinic with any concerns before the next appointment. Dr. Mendez has reviewed this note and agrees with this plan of care. This note was dictated using voice recognition software and make contain errors or omissions.
[2020-10-03 14:15] VITALS: BP 110/66; PULSE 60; RESP 18; O2SAT 97
== END 2020-10-03 14:15 | disposition home or self-care (01) ==
LOC: SC.PAINP 12:56
PROVIDERS: PCP Nurse Practitioner Family; Visit Provider Clinical Nurse Specialist Family Health
DX: M51.16 Intervertebral disc disorders with radiculopathy, lumbar region (principal); M96.1 Postlaminectomy syndrome, not elsewhere classified; Z45.1 Encounter for adjustment and management of infusion pump
CPT/HCPCS: 62370

== ENCOUNTER → 2021-02-21 10:11 | Outpatient (POV) | payer MEDICARE, MEDICAID, SELFPAY ==
--- NOTE | 2021-02-21 10:39 | HMH.PMPROC ---
- Procedure Date: 02/21/21 Time: 10:39 Anesthesiologist:: Adelaide Baeza APRN Complications:: None Pre-procedure Diagnosis:: Degenerative disc disease lumbar spine with lumbar radiculopathy symptoms, postlaminectomy syndrome lumbar spine Post-procedure Diagnosis:: Same Indications for Procedure:: Patient is a 66-year-old white male who presents today for 6-month follow-up. He is in [facility] home refill patient with intrathecal therapy. He is currently on hydromorphone at 0.25 mg/day and would like an increase. [facility] #[id number] has been reviewed and is appropriate. He did with also like his PTC device increase. He rates his pain a 6 out of 10. Patient is having pain in his right hip at this time. He says it is worse with movement. Physical exam General: Alert and oriented x3, no acute distress, pleasant and cooperative Lungs: Respirations even and unlabored, symmetrical chest expansion Eyes: PERRL Musculoskeletal: Flexion and extension of lumbar[spine] and right hip somewhat guarded secondary to pain, [antalgic gait noted] Neurological: Speech clear, no gross sensory deficit Procedure Details:: Informed consent was obtained and the risk and benefits of the procedure were explained to the patient. Patient was taken to the procedure room where noninvasive monitoring was placed including noninvasive blood pressure cuff and pulse oximeter. Patient's pump was interrogated and was reprogrammed to hydromorphone at 0.27 mg/day. PTC increase to 0.02 mg 4 times daily. The patient tolerated the procedure well with no complications. Plan and Disposition:: We will see the patient back in the clinic at the next intrathecal refill. Patient has been instructed to contact the clinic with any concerns before the next appointment. Dr. Mendez has reviewed this note and agrees with this plan of care. This note was dictated using voice recognition software and make contain errors or omissions.
[2021-02-21 10:48] VITALS: BP 138/73; PULSE 64; RESP 18; O2SAT 95; BMI 29.0
== END ==
PROVIDERS: Visit Provider Clinical Nurse Specialist Family Health
DX: M51.16 Intervertebral disc disorders with radiculopathy, lumbar region (principal); M96.1 Postlaminectomy syndrome, not elsewhere classified
CPT/HCPCS: 62368

== ENCOUNTER → 2022-05-31 13:11 | Outpatient (POV) | payer MEDICARE, MEDICAID, SELFPAY ==
[2022-05-31 01:45] VITALS: BP 91/61; PULSE 68; RESP 20; BMI 33.9
--- NOTE | 2022-05-31 14:35 | EXP.PAIN.PRO ---
Procedure Date: 05/31/22 Time: 14:24 Anesthesiologist:: Reshma Kong APRN Complications:: None Pre-procedure Diagnosis:: Degenerative disc disease of lumbar spine with lumbar radiculopathy symptoms, postlaminectomy syndrome Post-procedure Diagnosis:: Same Indications for Procedure:: Patient is a pleasant 67-year-old male who presents today for intrathecal pain pump reprogramming adjustment. The patient is being treated for degenerative disc disease of lumbar spine with lumbar radiculopathy symptoms, postlaminectomy syndrome lumbar spine. Patient is currently being managed with Dilaudid 3 mg/mL with a daily dose of 0.33 mg/day. Patient denies any side effects from this medication. Patient is an at home refill [facility] patient. Mr. Casey states he continues to experience significant pain in his low back with radiating symptoms into his right leg. Patient states he has been experiencing more falls lately. Patient does state this is at random. Patient denies any significant trauma or injury. Patient denies any new change to location or type of pain he experiences. Patient rates pain a 7 out of 10. Drug screen is appropriate. [facility] [id number] has been reviewed and is appropriate. Physical exam General: Alert and oriented x3, no acute distress, pleasant and cooperative Lungs: Respirations even and unlabored, symmetrical chest expansion Eyes: PERRL Musculoskeletal: Flexion and extension of lumbar [spine] somewhat guarded secondary to pain, [antalgic gait noted] Neurological: Speech clear, no gross sensory deficit ORT score updated with moderate risk Family history of alcohol abuse Personal history of alcohol abuse History of depression Procedure Details:: Informed consent was obtained and the risk and benefits of the procedure were explained to the patient. Patient was taken to the procedure room where noninvasive monitoring was placed including noninvasive blood pressure cuff and pulse oximeter. Patient's pump was interrogated and was reprogrammed to Dilaudid 0.36 mg/day. The patient tolerated the procedure well with no complications. Plan and Disposition:: With the patient's increased low back pain and recent falls I have counseled the patient that I will order a CT without contrast of his lumbar spine. Patient will return to clinic following this imaging for reevaluation of symptoms and follow-up. Patient has been instructed to contact the clinic with any concerns before the next appointment. Dr. Mendez has reviewed this note and agrees with this plan of care. This note was dictated using voice recognition software and make contain errors or omissions. -- It Is medically necessary for this patient to continue to have their intrathecal pump refilled at regular intervals. This patient had an intrathecal pain pump implanted after meeting criteria of chronic intractable pain for greater than 3 months and failing conservative treatments. Patient has committed and been compliant to the treatment plan and all planned follow up care. Since implantation of the intrathecal pain pump, the patient has had decreased pain and been more functional. Oral medications have been reduced including intake of oral opioids. Patient continues to do well with intrathecal therapy with decrease in pain symptoms and increase in functional status. Stopping intrathecal medications can lead to life threatening withdrawal, seizures, cardiac arrest, severe pain, and possible . Pumps that are not refilled at regular intervals can be damages and cause and need for replacement. We continually titrate dose and concentration to optimize pain relief and function. We are limited in concentration for certain drugs to safely deliver medications through the pump and stay within the recommendations from the Polyanalges[employer] Consensus Committee Guidelines. Depending on dose and concentration these pumps may need to be refilled sooner than 3 months as we titrate.
== END | disposition home or self-care (01) ==
PROVIDERS: Visit Provider Nurse Practitioner Family
DX: Z45.1 Encounter for adjustment and management of infusion pump (principal); M96.1 Postlaminectomy syndrome, not elsewhere classified; M51.16 Intervertebral disc disorders with radiculopathy, lumbar region
CPT/HCPCS: 62368

== ENCOUNTER → 2022-05-31 14:10 | Outpatient (CLI) | payer MEDICARE, MEDICAID, SELFPAY ==
[2022-05-31 16:11] LABS: Amphetamine/Metha Screen,Urine Negative ng/ml (<1000); Barbiturates Screen,Urine Negative ng/ml (<200); Benzodiazepines Screen,Urine Negative ng/ml (<200); Cannabinoid Screen,Urine Negative ng/ml (<50); Cocaine Screen,Urine Negative ng/ml (<300); Methadone Screen,Urine Negative ng/ml (<300); Opiate Screen,Urine Negative ng/ml (<300); Phencyclidine Screen,Urine Negative ng/ml (<25)
[2022-06-10 12:09] LABS: Codeine Negative (Cutoff=100); Hydrocodone Negative (Cutoff=100); Hydromorphone Positive (.); Morphine Negative (Cutoff=100); Opiates Positive (.)
== END ==
PROVIDERS: Visit Provider Nurse Practitioner Family
DX: Z79.891 Long term (current) use of opiate analgesic (principal)
CPT/HCPCS: 62368; 80305; 80361; 80365; G0480

== ENCOUNTER → 2023-02-20 12:58 | Outpatient (POV) | payer MEDICARE, MEDICAID, SELFPAY ==
--- NOTE | 2023-02-20 13:17 | EXP.PAIN.SOA ---
[facility] Pain Management SOAP Note Subjective:: Patient is a pleasant 68-year-old male who presents today for 6-month follow-up. We are currently treating the patient for degenerative disc disease of lumbar spine with lumbar radiculopathy symptoms, lumbar postlaminectomy syndrome. Today he rates his pain a 9 out of 10. Patient states his pain is all in his low back with radiating symptoms down his entire right leg. Patient does describe this as a constant pain such as aching, throbbing sensation that is worse with increased activity. He does state that he has difficulty walking due to the pain and frequently his leg will give out and he will fall. Patient states this has been going on for several months if not longer and progressively worsened over time. He does state that his intrathecal pump is working exceptionally well and does help manage his back symptoms. He is not at home refill client and is currently managed with Dilaudid 3 mg/mL with a daily dose of 0.36 mg/day. Patient denies any side effects from this medication. He is also prescribed compounding cream. His Bay has been reviewed and is appropriate. Review of Systems: General: No recent weight changes, no fever, no sleep disturbances Respiratory: No cough, no shortness of air, no recurring pulmonary infections Cardiovascular/peripheral vascular: No chest pain, no palpitations, no edema, no shortness of breath Gastrointestinal: No new onset incontinence, normal bowel movements reported Genitourinary: No new onset incontinence Musculoskeletal: Low back pain, right leg pain Psychiatric: [Normal mood/affect] Neurological: [Denies weakness in extremities], [denies balance issues] Objective:: Physical Exam: General: Alert and oriented x3, no acute distress, pleasant and cooperative Lungs: Respirations even and unlabored, symmetrical chest expansion Eyes: PERRL Musculoskeletal: Flexion and extension of lumbar [spine] somewhat guarded secondary to pain, [antalgic gait noted] positive right leg leg raise with decreased sensation to light touch and decreased reflexes Neurological: Speech clear, no gross sensory deficit Assessment:: Degenerative disc disease of lumbar spine with lumbar radiculopathy symptoms, lumbar postlaminectomy syndrome Plan:: Patient is experiencing worsening pain in his low back with symptoms radiating down his entire right leg. Patient had limited range of motion of his lumbar spine along with a positive right leg raise and decreased sensation to light touch and decreased reflexes during today's exam. I have discussed with the patient that he may benefit from a transforaminal epidural steroid injection. Risk and benefits were discussed with the patient and he would like to proceed forward with this plan of care. Patient is not on any blood thinners. We will schedule the patient for a right transforaminal epidural steroid injection L4-L5 and L5-S1. Patient has been instructed to contact the clinic with any concerns before the next appointment. Dr. Mendez has reviewed this note and agrees with this plan of care. This note was dictated using voice recognition software and make contain errors or omissions. [facility] Disclaimer: The information contained in this section may have been updated after the patient was seen, as this information can be updated by other users. Social History Smoking Status: Current every day smoker tobacco type: cigarettes packs per day: 1 alcohol intake: never substance use type: denies use current occupational status: other Travel in the last 8 weeks: None household members: none housing: house current occupational exposures/hazards: No caffeine: Yes
[2023-02-20 14:23] VITALS: BP 119/72; PULSE 87; RESP 18; O2SAT 93; BMI 27.6
== END ==
PROVIDERS: Visit Provider Nurse Practitioner Family
DX: M51.16 Intervertebral disc disorders with radiculopathy, lumbar region (principal); M96.1 Postlaminectomy syndrome, not elsewhere classified
CPT/HCPCS: 99212; G0463

== ENCOUNTER 2023-04-30 08:30 | Day surgery (SDC) | payer MEDICARE, MEDICAID, SELFPAY ==
[2023-04-30 08:46] VITALS: BP 104/65; PULSE 73; RESP 16; O2SAT 95; BMI 27.3
[2023-04-30] MEDS: IOPAMIDOL-200 (41%);10ML VIAL 10 ML IV (09:19)
[2023-04-30 09:20] VITALS: BP 122/70; PULSE 65; RESP 16; O2SAT 95
--- NOTE | 2023-04-30 09:34 | P.PCN_ITS ---
Procedure Date: 04/30/23 Time: 09:00 Anesthesiologist:: Eleuterio Bardales CRNA Complications:: None Pre-procedure Diagnosis:: Degenerative disc lumbar spine multilevels. Lumbar radiculopathy. Lumbar postlaminectomy syndrome. Disc bulge lumbar spine L4-5, L5-S1. Chronic pain syndrome. Post-procedure Diagnosis:: Same. Indications for Procedure:: This patient is a very pleasant 68-year-old male that comes our clinic today for right L4-5 and L5-S1 transforaminal epidural steroid injection. Patient complaining of low lumbar back pain off the midline to the right as well as right hip and leg radicular symptoms to the foot. Patient describes the pain as constant, dull, aching. Patient reports having difficulty with ambulation due to the pain. He rates his pain 9/10. Patient also being managed with hydromorphone intrathecal pain pump 3 mg/mL at a rate of 0.3600 mg/day. Patient reports it has been a long time since pump has been increased in rate. He cannot remember when it had been increased in the past. I recommend increasing pump today by 10%. We will communicate with home refill nurse regarding increase today as well as injective therapy today. Procedure Details:: Details of the procedure were explained to the patient. The patient was taken the procedure room placed in the prone position. The area of the lumbar spine was cleansed using chlorhexidine as a cleansing solution. At this time using fluoroscopy guidance markers were placed on the right lateral border of the L4 and L5 vertebral body. The skin and subcutaneous tissue was anesthetized using 1% lidocaine and 25-gauge needle. At this time using a 22-gauge 3-1/2 inch spinal needle the right upper one third of the L4-5 foramen was accessed. The same was done at the right L5-S1 foramen. Needle positions were confirmed and a lateral view using fluoroscopy and contrast dye. At this time 1 cc of 1% lidocaine +20 mg of Depo-Medrol was injected at each level after negative aspiration. [place] were removed. Band-Aid applied. Patient tolerated the procedure without difficulty. There are no complications. Details of the procedure were explained to the patient. The patient's pump was interrogated. The pump was increased by 10%. The patient's new rate will be 0.4000 mg/day. Patient tolerated procedure without difficulty. Plan and Disposition:: Patient was discharged without incident.
[2023-04-30] MEDS: LIDOCAINE 1% 5ML PF VIAL 5 ML (09:37)
[2023-04-30 09:38] VITALS: BP 123/51; PULSE 83; RESP 18; O2SAT 92
[2023-04-30 09:39] VITALS: BP 123/51; PULSE 83; RESP 18; O2SAT 92
== END 2023-04-30 09:20 | disposition home or self-care (01) ==
PROVIDERS: Visit Provider Nurse Anesthetist, Certified Registered
DX: M51.16 Intervertebral disc disorders with radiculopathy, lumbar region (principal); M96.1 Postlaminectomy syndrome, not elsewhere classified; M51.26 Other intervertebral disc displacement, lumbar region; G89.4 Chronic pain syndrome; Z97.8 Presence of other specified devices; Z45.1 Encounter for adjustment and management of infusion pump
CPT/HCPCS: 62368; J1030; Q9966

== ENCOUNTER → 2023-06-24 10:18 | Outpatient (POV) | payer MEDICARE, MEDICAID, SELFPAY ==
[2023-06-24 10:50] VITALS: BP 135/66; PULSE 66; RESP 18; BMI 33.9
--- NOTE | 2023-06-24 11:04 | EXP.PAIN.PRO ---
Procedure Date: 06/24/23 Time: 11:04 Anesthesiologist:: Reshma Kong APRN Complications:: None Pre-procedure Diagnosis:: Degenerative disc disease of lumbar spine with lumbar radiculopathy symptoms, lumbar postlaminectomy syndrome Post-procedure Diagnosis:: Same Indications for Procedure:: Patient is a pleasant 68-year-old male who presents today for follow-up of right transforaminal epidural steroid injection on 04/30/2023 as well as follow-up. Today he rates his pain a 9 out of 10. Patient states that he did not get any improvement following this injection. He states that he felt like it gave more pain and that this lasted for about a week. He states he is back to his baseline at today's visit. He states he continues to have low back and leg symptoms. He does state that he continues to have falls related to his right leg giving out. Patient is a [facility] home refill client and is managed with Dilaudid 3 mg/mL with a daily dose of 0.5 mg/day. He denies any side effects from this medication. He is also prescribed compounded cream and states he does need refills on this. His Bay has been reviewed and is appropriate. Physical Exam: General: Alert and oriented x3, no acute distress, pleasant and cooperative Lungs: Respirations even and unlabored, symmetrical chest expansion Eyes: PERRL Musculoskeletal: Flexion and extension of lumbar [spine] somewhat guarded secondary to pain, [antalgic gait noted] Neurological: Speech clear, no gross sensory deficit Procedure Details:: Informed consent was obtained and the risk and benefits of the procedure were explained to the patient. Patient was taken to the procedure room where noninvasive monitoring was placed including noninvasive blood pressure cuff and pulse oximeter. Patient's pump was interrogated and was reprogrammed to Dilaudid 0.55 mg/day. The patient tolerated the procedure well with no complications. Plan and Disposition:: Patient tolerated his intrathecal increase with no complications and was discharged neurologically tact. I will send in refills of his compounded cream. Patient will return to clinic in 6 months for reevaluation of symptoms and plan of care. Patient has been instructed to contact the clinic with any concerns before the next appointment. Dr. Mendez has reviewed this note and agrees with this plan of care. This note was dictated using voice recognition software and make contain errors or omissions. -- It Is medically necessary for this patient to continue to have their intrathecal pump refilled at regular intervals. This patient had an intrathecal pain pump implanted after meeting criteria of chronic intractable pain for greater than 3 months and failing conservative treatments. Patient has committed and been compliant to the treatment plan and all planned follow up care. Since implantation of the intrathecal pain pump, the patient has had decreased pain and been more functional. Oral medications have been reduced including intake of oral opioids. Patient continues to do well with intrathecal therapy with decrease in pain symptoms and increase in functional status. Stopping intrathecal medications can lead to life threatening withdrawal, seizures, cardiac arrest, severe pain, and possible . Pumps that are not refilled at regular intervals can be damages and cause and need for replacement. We continually titrate dose and concentration to optimize pain relief and function. We are limited in concentration for certain drugs to safely deliver medications through the pump and stay within the recommendations from the Polyanal[employer] Consensus [employer] Guidelines. Depending on dose and concentration these pumps may need to be refilled sooner than 3 months as we titrate.
== END | disposition home or self-care (01) ==
PROVIDERS: Visit Provider Nurse Practitioner Family
DX: M51.16 Intervertebral disc disorders with radiculopathy, lumbar region (principal); M96.1 Postlaminectomy syndrome, not elsewhere classified; Z97.8 Presence of other specified devices; Z45.1 Encounter for adjustment and management of infusion pump
CPT/HCPCS: 62368; 99212; G0463

== ENCOUNTER 2024-02-14 12:33 | Outpatient (POV) | payer MEDICAID, SELFPAY ==
[2024-02-14 13:34] VITALS: BP 115/78; PULSE 61; RESP 14; O2SAT 97; BMI 30.3
--- NOTE | 2024-02-14 13:46 | P.PCN_ITS ---
Procedure Date: 02/14/24 Time: 13:47 Anesthesiologist:: Reshma Kong APRN Complications:: None Pre-procedure Diagnosis:: Degenerative disc disease of lumbar spine with lumbar radiculopathy symptoms, lumbar postlaminectomy syndrome Post-procedure Diagnosis:: Same Indications for Procedure:: Patient is a pleasant 69-year-old male who presents today for intrathecal adjustment and reprogram. Today he rates his pain a 9 out of 10. He denies any new trauma or injury. He states he continues to have the chronic low back pain that does radiate down his entire right leg and right hip but has also been experiencing more left pain however denies going down that leg. Patient describes it as an aching, throbbing sensation. Patient does state that he has tried injections in the past and they just did not seem to do his well. He does state that his family care doctor did give him a cortisone injection with a muscle relaxer and it did help for about 3 days. Patient states that his other Ortho doctor stated that if he could not find something to give him better improvement that they were talking about going ahead with a right hip replacement. Patient states he is not necessarily interested in this option. Patient is currently managed with Dilaudid 5 mg/mL with a daily dose of 0.605 mg/day. He denies any side effects from this medication. He is also prescribed compounded cream. His Bay has been reviewed and is appropriate. Physical Exam: General: Alert and oriented x3, no acute distress, pleasant and cooperative Lungs: Respirations even and unlabored, symmetrical chest expansion Eyes: PERRL Musculoskeletal: Flexion and extension of lumbar [spine] somewhat guarded s econdary to pain, [antalgic gait noted] Neurological: Speech clear, no gross sensory deficit Procedure Details:: Informed consent was obtained and the risk and benefits of the procedure were explained to the patient. Patient was taken to the procedure room where noninvasive monitoring was placed including noninvasive blood pressure cuff and pulse oximeter. Patient's pump was interrogated and was reprogrammed to Dilaudid 0.7 to 6 mg/day. The patient tolerated the procedure well with no complications. Plan and Disposition:: I did discuss with the patient that we can always see about doing a lumbar epidural and see if this does help better than what he has had in the past of the right transforaminal especially since his symptoms have started to change and is now experiencing some into his left hip and buttocks area. Patient states at this time he is not interested. Patient did tolerate his intrathecal increase with no complications and was discharged neurologically intact. Patient was made an exception to still continue with [facility] home refill due to poor mobility. Patient will return to clinic in 6 months for reevaluation of symptoms and plan of care. We will see the patient back in the clinic at the next intrathecal refill. Patient has been instructed to contact the clinic with any concerns before the next appointment. Dr. Mendez has reviewed this note and agrees with this plan of care. This note was dictated using voice recognition software and make contain errors or omissions. -- It Is medically necessary for this patient to continue to have their intrathecal pump refilled at regular intervals. This patient had an intrathecal pain pump implanted after meeting criteria of chronic intractable pain for greater than 3 months and failing conservative treatments. Patient has committed and been compliant to the treatment plan and all planned follow up care. Since impl antation of the intrathecal pain pump, the patient has had decreased pain and been more functional. Oral medications have been reduced including intake of oral opioids. Patient continues to do well with intrathecal therapy with decrease in pain symptoms and increase in functional status. Stopping intrathecal medications can lead to life threatening withdrawal, seizures, cardiac arrest, severe pain, and possible . Pumps that are not refilled at regular intervals can be damages and cause and need for replacement. We continually titrate dose and concentration to optimize pain relief and function. We are limited in concentration for certain drugs to safely deliver medications through the pump and stay within the recommendations from the Polyanalges[employer] Consensus Committee Guidelines. Depending on dose and concentration these pumps may need to be refilled sooner than 3 months as we titrate.
== END 2024-02-14 23:59 | disposition home or self-care (01) ==
PROVIDERS: Visit Provider Nurse Practitioner Family
DX: M51.16 Intervertebral disc disorders with radiculopathy, lumbar region (principal); M96.1 Postlaminectomy syndrome, not elsewhere classified
CPT/HCPCS: 62368; 99212; G0463